=== PATIENT | male | born 1995 | race Caucasian/White ===

== ENCOUNTER 2022-09-16 17:59 | Emergency (ER) | payer BC, OTHER, SELFPAY ==
[~2022-09-16] VITALS: Ht 182.9 cm; Wt 89.4 kg
[2022-09-16 21:18] VITALS: BP 134/60; PULSE 78; RESP 16
[2022-09-16] MEDS ORDERED: CEPH500T PO (21:18)
== END 2022-09-16 21:39 | disposition home or self-care (01) ==
LOC: EDH 17:59
DX: S91.312A Laceration without foreign body, left foot, initial encounter (principal); Z98.890 Other specified postprocedural states; W18.39XA Other fall on same level, initial encounter; Y93.89 Activity, other specified; Y92.89 Other specified places as the place of occurrence of the external cause; Y99.8 Other external cause status
CPT/HCPCS: 12001; 73620